=== PATIENT | female | born 1940 | race Caucasian/White ===

== ENCOUNTER → 2022-08-18 | Outpatient (CLI) | payer MEDICARE ==
--- NOTE | 2022-08-18 08:49 | US ---
EXAMINATION TYPE: US gallbladder DATE OF EXAM: 08/18/2022 COMPARISON: 07/09/2015 CLINICAL INDICATION: Female, 82 years old with history of K21.9,R10.84 GERD, ABD PAIN; GERD TECHNIQUE: Multiple sonographic images of the right upper quadrant are obtained. FINDINGS: EXAM MEASUREMENTS: Liver Length: 12.7 cm Gallbladder Wall: 0.3 cm CBD: 0.5 cm Right Kidney: 9.1 x 4.4 x 4.8 cm Pancreas: Tail obscured by overlying bowel gas Liver: appears wnl Gallbladder: no evidence of stones Evidence for sonographic Fleming's sign: no CBD: visualized portion appears wnl Right Kidney: anechoic area = 2.4 x 2.6 x 2.4cm IMPRESSION: 1. No evidence for acute process. 2. Right simple appearing renal cysts.
== END | disposition home or self-care (01) ==
LOC: RADUSWWP 07:24
PROVIDERS: ATTEND Family Medicine
DX: N28.1 Cyst of kidney, acquired (principal); K21.9 Gastro-esophageal reflux disease without esophagitis
CPT/HCPCS: 76705